=== PATIENT | male | born 1985 | race African-American/Black ===

== ENCOUNTER 2016-05-30 11:53 | Emergency (ER) | payer SELFPAY ==
[~2016-05-30] VITALS: Ht 182.9 cm; Wt 107.0 kg
[~2016-05-30 11:53] MED LIST: FLEXERIL10 MG PO; MOTRIN600 MG PO
[2016-05-30] MEDS ORDERED: LORTAB 5-325 M1 EACH PO (13:35)
[2016-05-30 15:06] VITALS: BP 127/91
== END 2016-05-30 15:07 | disposition home or self-care (01) ==
LOC: EME 11:53
DX: S62.616A Displaced fracture of proximal phalanx of right little finger, initial encounter for closed fracture (principal); W22.09XA Striking against other stationary object, initial encounter
CPT/HCPCS: 73140; 99281; 99284

== ENCOUNTER 2017-10-16 08:33 | Emergency (ER) | payer BC ==
[~2017-10-16] VITALS: Ht 182.9 cm; Wt 102.6 kg
[~2017-10-16 08:33] MED LIST changes: +LORTAB 5-325 M1 EACH PO
[2017-10-16] MEDS ORDERED: ERYTHROMYC1 APPLICAT RIGHT EYE (10:39)
[2017-10-16] MEDS ORDERED: NAPROSYN500 MG PO (10:39)
[2017-10-16 10:51] VITALS: BP 137/74
== END 2017-10-16 11:05 | disposition home or self-care (01) ==
LOC: EME 08:33
PROC: 2W3CX1Z Immobilization of Right Lower Arm using Splint (ICD-10-PCS; principal; 2017-10-16)
DX: S62.316A Displaced fracture of base of fifth metacarpal bone, right hand, initial encounter for closed fracture (principal); T26.01XA Burn of right eyelid and periocular area, initial encounter; W22.8XXA Striking against or struck by other objects, initial encounter; X19.XXXA Contact with other heat and hot substances, initial encounter
CPT/HCPCS: 73130; 99281; 99283